=== PATIENT | female | born 1970 | race Caucasian/White ===

== ENCOUNTER 2023-04-12 16:36 | Emergency (ER) | payer OTHER ==
[2023-04-12] MEDS ORDERED: Gabapentin 100 MG CAP ONE (17:17)
[2023-04-12] MEDS ORDERED: Divalproex Sodium 250 MG ER.TAB ONE (17:17)
[2023-04-12 17:42] LABS: Bilirubin Negative (Negative); Blood, Urine Small (Negative); Glucose, Urine (Dipstick) Negative (Negative); Ketone, Urine Negative (Negative); Leukocyte Small (Negative); Nitrite Negative (Negative); Protein, Urine (Dipstick) Negative (Neg-Trace); Urobilinogen 0.2 mg/dL (Less than 2); pH, Urine 5.5 (5.0-9.0)
[2023-04-12 17:43] LABS: Clarity Clear (Clear)
[2023-04-12 17:49] LABS: Bacteria/HPF Rare-Few HPF (None Seen); CAUTI Indications for Culture Dysuria,urgency,freq; RBC/HPF 0-3 HPF (0-3); Urine Culture Reflex No No
== END 2023-04-12 18:28 | disposition home or self-care (01) ==
LOC: MADERS 16:36
DX: G40.901 Epilepsy, unspecified, not intractable, with status epilepticus (principal); F20.9 Schizophrenia, unspecified; B37.31 Acute candidiasis of vulva and vagina; Z20.822 Contact with and (suspected) exposure to COVID-19
CPT/HCPCS: 81001; 87635; 87804; 94760

== ENCOUNTER 2023-07-08 09:35 | Emergency (ER) | payer OTHER ==
[2023-07-08] MEDS ORDERED: Divalproex Sodium 250 MG ER.TAB ONE (10:12)
== END 2023-07-08 10:18 | disposition home or self-care (01) ==
LOC: MADERS 09:35
DX: G40.909 Epilepsy, unspecified, not intractable, without status epilepticus (principal); F20.9 Schizophrenia, unspecified; F17.210 Nicotine dependence, cigarettes, uncomplicated; Z79.899 Other long term (current) drug therapy
CPT/HCPCS: 99284

== ENCOUNTER 2023-09-08 03:43 | Emergency (ER) | payer OTHER ==
[2023-09-08] MEDS ORDERED: Orphenadrine Citrate 60 MG/2 ML VIAL ONE (04:27)
[2023-09-08] MEDS ORDERED: Ketorolac Tromethamine 30 MG (1 mL) VIAL ONE (04:27)
[2023-09-08 04:33] LABS: Bilirubin Negative (Negative); Blood, Urine Trace (Negative); Clarity Clear (Clear); Glucose, Urine (Dipstick) Negative (Negative); Ketone, Urine Negative (Negative); Leukocyte Trace (Negative); Nitrite Negative (Negative); Protein, Urine (Dipstick) Negative (Neg-Trace); Urobilinogen 0.2 mg/dL (Less than 2)
[2023-09-08 04:37] LABS: CAUTI Indications for Culture Pelvic or flank pain; Squamous Epithelial 0-3 HPF (0-3); WBC/HPF 0-3 HPF (0-3)
[2023-09-08 04:38] LABS: Urine Culture Reflex No No
[2023-09-08] MEDS ORDERED: predniSONE 20 MG TAB ONE (05:32)
== END 2023-09-08 08:05 | disposition home or self-care (01) ==
LOC: MADERS 03:43
DX: M51.86 Other intervertebral disc disorders, lumbar region (principal); M51.34 Other intervertebral disc degeneration, thoracic region; F17.210 Nicotine dependence, cigarettes, uncomplicated
CPT/HCPCS: 72128; 72131; 81001; 96372; J1885; J2360; J7512